=== PATIENT | male | born 1960 | race Caucasian/White ===

== ENCOUNTER 2017-07-09 16:23 | Emergency (ER) | payer OTHER ==
[2017-07-09 17:00] VITALS: RESP 18
--- NOTE | 2017-07-09 17:41 | EDPHY ---
H & P Time Seen by Provider: 07/09/17 16:56 HPI/ROS: CHIEF COMPLAINT: Right ankle injury HISTORY OF PRESENT ILLNESS: 56-year-old male presents to the emergency department of the right ankle injury. Patient states that at 3:00 p.m. he twisted his right ankle. He did not for the ground or hit his head. Denies any other trauma or injury. Unable to bear weight. ROS: Denies numbness or tingling in his toes, pain in his right knee or hip. Past Medical/Surgical History: Negative Social History: . 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 He has mild tenderness with palpation over the lateral malleolus. Nontender over the medial malleolus. Pain with full dorsiflexion. He is able to plantar flex. No obvious ligament instability. His gait is not tested due to pain. Normal sensation to light touch with normal 2 point discrimination. Strong dorsalis pedis pulse on the dorsal aspect of his right foot. Calf is nontender. Achilles tendon is intact. Constitutional: Initial Vital Signs Temperature (C) 36.8 C 07/09/17 16:41 Heart Rate 78 07/09/17 16:41 Respiratory Rate 16 07/09/17 16:41 Blood Pressure 130/92 H 07/09/17 16:41 O2 Sat (%) 99 07/09/17 16:41 O2 Delivery Mode Room Air Allergies/Adverse Reactions: No Known Allergies Allergy (Unverified 07/09/17 16:41) Home Medications: Medication Instructions Recorded Ondansetron Odt [Zofran Odt 4 mg 4 mg PO Q4 PRN #10 tab 08/30/13 (RX)] Vitamin D2 09/01/14 MDM/Departure - MDM Imaging Results: Imaging Impressions Ankle X-Ray 07/09/17 16:46 Impression: Talar avulsion and lateral ankle sprain. Imaging: I viewed and interpreted images myself Procedures: Patient was placed in a Simmons boot and examined post application in good placement with normal QUALITY DIRECTOR. ED Course/Re-evaluation: 56-year-old male presents to the emergency department with right ankle injury. X -rays reveal avulsion fracture off the talus with oral ankle sprain. Patient was placed in Simmons boot and given orthopedic referral. Patient is a Urgent Care Health patient is requesting a Urgent Care Health provider. Patient has crutches and will be nonweightbearing. - Depart Disposition: Home, Routine, Self-Care Clinical Impression: Avulsion fracture of right ankle Qualifiers: Encounter type: initial encounter Fracture type: closed Qualified Code(s): S82.891A - Other fracture of right lower leg, initial encounter for closed fracture Ankle sprain Qualifiers: Encounter type: initial encounter Involved ligament of ankle: unspecified ligament Laterality: right Qualified Code(s): S93.401A - Sprain of unspecified ligament of right ankle, initial encounter Condition: Good Instructions: Ankle Fracture (ED), Ankle Sprain (ED) Additional Instructions: Troy boot for comfort and support. Nonweightbearing, use crutches. Ibuprofen 400 mg every 8 hr as needed for pain. Referrals: Clarke Thomas MD [Medical Doctor] - 2-3 days without fail (Orthopedic surgeon on -call) Fernando Mayers MD [Medical Doctor] - 2-3 days without fail ([employer] orthopedic surgeon)
[2017-07-09 18:03] VITALS: BP 135/86; PULSE 76; TEMP 99.1; O2SAT 94
== END 2017-07-09 18:23 | disposition home or self-care (01) ==
DX: S82.891A Other fracture of right lower leg, initial encounter for closed fracture (principal); S93.401A Sprain of unspecified ligament of right ankle, initial encounter; X50.9XXA Other and unspecified overexertion or strenuous movements or postures, initial encounter
CPT/HCPCS: L4386

== ENCOUNTER → 2017-07-19 | Outpatient (CLI) | payer OTHER | LOC: FIMAGING 07:44 | PROVIDERS: ATTEND Orthopaedic Surgery | DX: S92.061A Displaced intraarticular fracture of right calcaneus, initial encounter for closed fracture (principal); S82.61XA Displaced fracture of lateral malleolus of right fibula, initial encounter for closed fracture; S92.151A Displaced avulsion fracture (chip fracture) of right talus, initial encounter for closed fracture ==

== ENCOUNTER 2017-07-27 11:48 | Emergency (ER) | payer OTHER ==
[2017-07-27 11:55] VITALS: BP 135/92; PULSE 62; RESP 16; TEMP 97.7; O2SAT 96
--- NOTE | 2017-07-27 12:01 | EDPHY ---
H & P Stated Complaint: R calf pain Time Seen by Provider: 07/27/17 11:59 HPI/ROS: CHIEF COMPLAINT: Right calf pain HISTORY OF PRESENT ILLNESS: The patient has a history of a calcaneal fracture which is current being treated closed. The patient was evaluated as orthopedic surgeon's office today in anticipation of cast placement. The patient reported he had been having some calf pain for the past several days. The patient was sent to the hospital for an ultrasound which demonstrated a right lower extremity DVT. The patient was referred to the ED for further evaluation. The patient denies prior history of PE or DVT. The patient has no risk factors for thromboembolic disease. REVIEW OF SYSTEMS: A comprehensive 10 point review of systems is otherwise negative aside from elements mentioned in the history of present illness. Source: Patient Exam Limitations: No limitations - Personal History Current Tetanus/Diphtheria Vaccine: Unsure Current Tetanus Diphtheria and Acellular Pertussis (TDAP): Unsure - Medical/Surgical History Hx Asthma: No Hx Chronic Respiratory Disease: No Hx Diabetes: No Hx Cardiac Disease: No Hx Renal Disease: No Hx Cirrhosis: No Hx Alcoholism: No Hx HIV/AIDS: No Hx Splenectomy or Spleen Trauma: No Other PMH: R heel fx, - Social History Smoking Status: Never smoked - Physical Exam Exam: General Appearance: Alert, no distress Eyes: Pupils equal and round no pallor or injection ENT, Mouth: Mucous membranes moist Respiratory: There are no retractions, lungs are clear to auscultation Cardiovascular: Regular rate and rhythm Neurological: Grossly normal motor exam Skin: Warm and dry, no rashes Musculoskeletal: Neck is supple nontender Extremities: Mild right calf tenderness Constitutional: Initial Vital Signs Temperature (C) 36.5 C 07/27/17 11:53 Heart Rate 62 07/27/17 11:53 Respiratory Rate 16 07/27/17 11:53 Blood Pressure 135/92 H 07/27/17 11:53 O2 Sat (%) 96 07/27/17 11:53 O2 Delivery Mode Room Air Allergies/Adverse Reactions: No Known Allergies Allergy (Unverified 07/27/17 11:52) Home Medications: Medication Instructions Recorded Vitamin D2 09/01/14 Ibuprofen 07/27/17 Rivaroxaban [Xarelto 15mg (*)] 15 mg PO BID #42 tab 07/27/17 Medical Decision Making - Diagnostics Imaging Results: Right Lower Extremity Deep Venous Duplex Doppler Ultrasound History: Right lower extremity leg pain and swelling. Calcaneal fracture on . Technique: The Right lower extremity deep venous system and veins of the proximal calf were interrogated with grayscale, color, and spectral Doppler imaging. Findings: The right common femoral, superficial femoral, and popliteal veins normally compress on grayscale imaging. There is noncompressible thrombus within one of the 2 paired posterior tibial veins in the proximal to mid calf. Peroneal veins compress normally.. The visualized greater saphenous vein compresses normally without thrombus. Impression: 1. Thrombus involving one of the 2 paired posterior tibial veins in the proximal to mid calf. No additional DVT right lower extremity. ED Course/Re-evaluation: I reviewed the results of the patient's ultrasound which demonstrates clot noted in 2 tibial veins. He will be started on Xarelto. He will follow up with his primary care provider in the next week. He will return to the emergency department for any chest pain, shortness of breath, presyncope pain, redness, swelling or fever. Departure - Departure Disposition: Home, Routine, Self-Care Clinical Impression: Acute DVT of right tibial vein Condition: Good Instructions: Deep Vein Thrombosis (ED) Additional Instructions: 1. Begin Xarelto as prescribed. The medication will be twice a day for the next [address] You will need to switch you to once a day medication after the 1st 3 weeks of therapy are complete. 2. Tylenol as needed for pain. I recommend avoiding ibuprofen while taking the blood thinner. 3. Please follow up as scheduled with Dr. Mayers Referrals: LÁZARO YOU [Primary Care Provider] - As per Instructions
== END 2017-07-27 12:29 | disposition home or self-care (01) ==
DX: I82.441 Acute embolism and thrombosis of right tibial vein (principal)

== ENCOUNTER → 2017-07-27 | Outpatient (CLI) | payer OTHER | LOC: FIMAGING 10:55 | PROVIDERS: ATTEND Orthopaedic Surgery | DX: I82.441 Acute embolism and thrombosis of right tibial vein (principal) ==

== ENCOUNTER 2018-08-31 09:26 | Emergency (ER) | payer OTHER ==
--- NOTE | 2018-08-31 10:00 | EDPHY ---
H & P Time Seen by Provider: 08/31/18 10:00 HPI/ROS: CHIEF COMPLAINT: Abdominal pain HISTORY OF PRESENT ILLNESS: Patient states that Wednesday morning he had 3 bowel movements in an hour and took Imodium and went to work butt heads pretty severe abdominal cramping all day on off with a single episode of nausea and vomiting. He was able to sleep that night and then TT morning at 6:30 a.m. He woke up and felt better and thought it was over. The pain turned last night and has persisted all day today. He describes it as crampy in his lower abdomen. Associated with some nausea but no further vomiting. No diarrhea. A little bit of left-sided testicular pain but no urine symptoms. A little bit worse walking. REVIEW OF SYSTEMS: Eye: no change in vision ENT: no sore throat Cardiac: no chest pain or syncope Pulmonary: no cough or SOB Abdomen: HPI Musculoskeletal: no back pain Skin: no rash Neuro: no headache Constitutional: no fever : HPI A comprehensive 10 point review of systems is otherwise negative aside from elements mentioned in the history of present illness. PAST MEDICAL HISTORY: Heel fracture Social history: General Appearance: Alert and conversant, cooperative. Eyes: No scleral icterus. ENT, Mouth: Slightly dry mucous membranes. Respiratory: Normal respiratory effort, breath sounds equal, lungs are clear to auscultation. Cardiovascular: Regular rate and rhythm. Gastrointestinal: Left lower quadrant tenderness without rebound or guarding, testicular tenderness on the left side but not swollen and no scrotal skin changes. Neurological: Alert, face symmetric, normal motor and sensory in extremities. Skin: Warm and dry, no rashes. Musculoskeletal: No peripheral edema. Psychiatric: Not agitated. Emergency Department course/MDM: 1132: small hydrocele, otherwise negative, [place] 1132. CT scan discussed and consented. Initially treated Dilaudid and Zofran. 1239: [place]; CT shows 3mm distal ureteral stone with severe hydronephrosis and stranding. This was discussed in detail with Dr. Иван Null from Urology and with the patient at 2:[address] CT findings reviewed with Dr. Null who recommends discharge with pain medication and office follow-up if his symptoms adequately controlled. Patient says he would like to do this which I think is reasonable. Flomax discussed and consented, I think he is unlikely to have high risk for orthostatic hypotension. Smoking Status: Never smoked Constitutional: Initial Vital Signs Temperature (C) 37.2 C 08/31/18 09:31 Heart Rate 70 08/31/18 09:31 Respiratory Rate 16 08/31/18 09:31 Blood Pressure 153/94 H 08/31/18 09:31 O2 Sat (%) 96 08/31/18 09:31 O2 Delivery Mode Room Air O2 (L/minute) 2 Allergies/Adverse Reactions: No Known Allergies Allergy (Unverified 07/27/17 11:52) Home Medications: Medication Instructions Recorded Vitamin D2 09/01/14 Ibuprofen 07/27/17 Ondansetron Odt [Zofran Odt] 4 mg PO Q4PRN #6 tab 08/31/18 Tamsulosin HCl [Flomax] 0.4 mg PO DAILY8 #10 cap 08/31/18 oxyCODONE/APAP 5/325 [Percocet] 1 - 2 tab PO Q4-6PRN PRN #11 tab 08/31/18 Medical Decision Making - Diagnostics Imaging Results: Imaging Impressions Testicular Ultrasound 08/31/18 10:12 Impression: 1. Small bilateral hydroceles. 2. No intratesticular masses. 3. No evidence of testicular torsion or definite inflammatory changes. Findings and recommendations discussed with Emergency Department physician, Devan Fabian at 1133 hour, 08/31/2018. Final report concurs with initial preliminary interpretation. Abdomen CT 08/31/18 11:08 Impression: 1. Obstructing distal left ureteral with moderate left hydroureteronephrosis, enhancing urothelium, and significant perinephric fluid suggestive of pyonephrosis, correlation with signs/symptoms of urosepsis is recommended. 2. Mural bowel wall thickening of the descending/sigmoid colon may be secondary to decompression, however colitis of inflammatory/infectious nature could have a similar appearance. Devan Fabian was notified of these findings by telephone at 12:40 PM on 08/31/2018 Imaging: Discussed imaging studies w/ outbound call center representative Radiologist Differential Diagnosis: Differential for left-sided abdominal pain considered including but not limited to renal colic, diverticulitis, bowel obstruction, testicular torsion or mass. - Data Points Laboratory Results: Laboratory Results 08/31/18 10:04 08/31/18 10:04 08/31/18 08/31/18 08/31/18 12:55 10:04 10:04 WBC 15.63 10^3/uL H 10^3/uL (3.80-9.50) RBC 5.28 10^6/uL 10^6/uL (4.40-6.38) Hgb 15.9 g/dL g/dL (13.7-17.5) Hct 45.3 % % (40.0-51.0) MCV 85.8 fL fL (81.5-99.8) MCH 30.1 pg pg (27.9-34.1) MCHC 35.1 g/dL g/dL (32.4-36.7) RDW 12.3 % % (11.5-15.2) Plt Count 307 10^3/uL 10^3/uL (150-400) MPV 9.7 fL fL (8.7-11.7) Neut % (Auto) 87.2 % H % (39.3-74.2) Lymph % (Auto) 5.3 % L % (15.0-45.0) [place] % (Auto) 6.8 % % (4.5-13.0) Eos % (Auto) 0.0 % L % (0.6-7.6) Baso % (Auto) 0.3 % % (0.3-1.7) Nucleat RBC Rel Count 0.0 % % (0.0-0.2) Absolute Neuts (auto) 13.62 10^3/uL H 10^3/uL (1.70-6.50) Absolute Lymphs (auto) 0.83 10^3/uL L 10^3/uL (1.00-3.00) Absolute Monos (auto) 1.07 10^3/uL H 10^3/uL (0.30-0.80) Absolute Eos (auto) 0.00 10^3/uL L 10^3/uL (0.03-0.40) Absolute Basos (auto) 0.04 10^3/uL 10^3/uL (0.02-0.10) Absolute Nucleated RBC 0.00 10^3/uL 10^3/uL (0-0.01) Immature Gran % 0.4 % % (0.0-1.1) Immature Gran # 0.07 10^3/uL 10^3/uL (0.00-0.10) Sodium 137 mEq/L mEq/L (135-145) Potassium 3.9 mEq/L mEq/L (3.5-5.2) Chloride 101 mEq/L mEq/L (97-110) Carbon Dioxide 24 mEq/l mEq/l (22-31) Anion Gap 12 mEq/L mEq/L (6-14) BUN 12 mg/dL mg/dL (7-23) Creatinine 1.1 mg/dL mg/dL (0.7-1.3) Estimated GFR > 60 Glucose 122 mg/dL H mg/dL (70-100) Calcium 9.9 mg/dL mg/dL (8.5-10.4) Total Bilirubin 1.9 mg/dL H mg/dL (0.1-1.4) Conjugated Bilirubin 0.3 mg/dL mg/dL (0.0-0.5) Unconjugated Bilirubin 1.6 mg/dL H mg/dL (0.0-1.1) AST 33 IU/L IU/L (17-59) ALT 35 IU/L IU/L (21-72) Alkaline Phosphatase 79 IU/L IU/L (38-126) Total Protein 7.3 g/dL g/dL (6.3-8.2) Albumin 4.5 g/dL g/dL (3.5-5.0) Lipase 122 IU/L IU/L (23-300) Urine Color YELLOW Urine Appearance CLEAR Urine pH 6.0 (5.0-7.5) Ur Specific [place] > 1.035 H (1.002-1.030) Urine Protein NEGATIVE (NEGATIVE) Urine Ketones TRACE H (NEGATIVE) Urine Blood NEGATIVE (NEGATIVE) Urine Nitrate NEGATIVE (NEGATIVE) Urine Bilirubin NEGATIVE (NEGATIVE) Urine Urobilinogen NEGATIVE EU EU (0.2-1.0) Ur Leukocyte Esterase NEGATIVE (NEGATIVE) Urine Glucose NEGATIVE (NEGATIVE) Medications Given: Discontinued Medications Hydromorphone HCl (Dilaudid) 0.5 mg IVP EDNOW ONE Stop: 08/31/18 10:13 Last Admin: 08/31/18 10:29 Dose: 0.5 mg Sodium Chloride (Ns) 1,000 mls @ 0 mls/hr IV EDNOW ONE; Wide Open PRN Reason: Protocol Stop: 08/31/18 10:13 Last Admin: 08/31/18 10:29 Dose: 1,000 mls Ibuprofen (Motrin) 600 mg PO EDNOW ONE Stop: 08/31/18 14:28 Last Admin: 08/31/18 14:40 Dose: 600 mg Ondansetron HCl (Zofran) 4 mg IVP EDNOW ONE Stop: 08/31/18 10:13 Last Admin: 08/31/18 10:28 Dose: 4 mg Oxycodone/Acetaminophen (Percocet 5/325) 1 tab PO EDNOW ONE Stop: 08/31/18 14:28 Last Admin: 08/31/18 14:40 Dose: 1 tab Tamsulosin HCl (Flomax) 0.4 mg PO EDNOW ONE Stop: 08/31/18 14:29 Last Admin: 08/31/18 14:40 Dose: 0.4 mg Departure - Departure Disposition: Home, Routine, Self-Care Clinical Impression: Renal colic on left side Condition: Good Instructions: Oxycodone/Acetaminophen (By mouth), Renal Colic (ED) Referrals: LÁZARO YOU [Primary Care Provider] - As per Instructions Magdy Null MD [Medical Doctor] - 1-2 days without fail (followup in office if not better by Wednesday) Prescriptions: Ondansetron Odt [Zofran Odt] 4 mg PO Q4PRN #6 tab oxyCODONE/APAP 5/325 [Percocet] 1 - 2 tab PO Q4-6PRN PRN #11 tab PRN Reason: Pain Tamsulosin HCl [Flomax] 0.4 mg PO DAILY8 #10 cap
[2018-08-31] MEDS ORDERED: NS 1,000 ML IV ONE (10:12)
[2018-08-31] MEDS ORDERED: HYDROmorphONE/DILAUDID 2 MG/ML INJ IVP ONE (10:12)
[2018-08-31] MEDS ORDERED: ONDANSETRON 4 MG/2 ML VIAL IVP ONE (10:12)
[2018-08-31 10:25] LABS: PLATELET COUNT 307 10^3/uL (150-400)
[2018-08-31] MEDS ORDERED: HYDROmorphONE/DILAUDID 1 MG/ML INJ ONE (10:27)
[2018-08-31] MEDS ORDERED: IOPAMIDOL (ISOVUE-300) 100 ML BTL ONE (11:19)
[2018-08-31] MEDS ORDERED: OXYCODONE/APAP 5/325 TAB PO ONE (14:27)
[2018-08-31] MEDS ORDERED: IBUPROFEN 600 MG TAB PO ONE (14:27)
[2018-08-31] MEDS ORDERED: TAMSULOSIN HCL 0.4 MG CAP PO ONE (14:28)
[2018-08-31 14:46] VITALS: BP 146/87
== END 2018-08-31 14:46 | disposition home or self-care (01) ==
DX: N13.1 Hydronephrosis with ureteral stricture, not elsewhere classified (principal); E86.9 Volume depletion, unspecified
CPT/HCPCS: 96374; J1170; J2405; Q9967

== ENCOUNTER → 2018-09-02 | Outpatient (CLI) | payer OTHER | LOC: FIMAGING 12:11 | PROVIDERS: ATTEND Specialist | DX: N20.0 Calculus of kidney (principal); I87.8 Other specified disorders of veins ==